=== PATIENT | male | born 1965 | race African-American/Black ===

== ENCOUNTER 2021-02-05 10:19 | Outpatient (REF) | payer OTHER, SELFPAY ==
[2021-02-05 12:14] LABS: Anion Gap 15 (12-20); Blood Urea Nitrogen 9 mg/dL (9-16); Calcium 10.1 mg/dL (8.4-10.2); Carbon Dioxide 22 mmol/L (22-29); Chloride 103 mmol/L (96-108); Estimated Glomerular Filt Rate > 60; Glucose Fasting 190 mg/dL (60-99); Potassium 3.9 mmol/L (3.3-5.1); Rheumatoid Factor < 15.0 IU/mL (<15.0); Sodium 136 mmol/L (135-145)
[2021-02-05 12:32] LABS: Erythrocyte Sedimentation Rate 16 MM/HR (0-15)
[2021-02-05 12:45] LABS: Syphilis Screen Nonreactive (Nonreactive)
[2021-02-05 13:01] LABS: Folate 10.1 ng/mL (> or = 4.0); Vitamin B12 585 pg/mL (200-900)
[2021-02-06 12:20] LABS: Complement C3 120 mg/dL (82-185)
[2021-02-07 05:06] LABS: Lyme Abs Screen <0.90 index
[2021-02-07 10:16] LABS: Anti DNA DS Antibody <1 IU/mL
[2021-02-08 13:46] LABS: IgA 301 mg/dL (47-310); IgG 1341 mg/dL (600-1640); IgM 71 mg/dL (50-300)
[2021-02-10 16:12] LABS: Anti Nuclear Antibody Screen NEGATIVE (NEGATIVE)
[2021-02-11 23:42] LABS: Alpha-Tocopherol 17.2 mg/L (5.7-19.9); Beta-Gamma Tocopherol 1.5 mg/L (<=4.3)
== END 2021-02-05 10:20 | disposition home or self-care (01) ==
LOC: HO.LAB 10:19
PROVIDERS: PCP Internal Medicine Pulmonary Disease; Visit Provider Psychiatry & Neurology Neurology
DX: G62.9 Polyneuropathy, unspecified (principal)
CPT/HCPCS: 36415; 80048; 82550; 82607; 82746; 82784; 84446; 85652; 86038; 86039; 86160; 86225; 86334; 86431; 86617; 86618; 86780

== ENCOUNTER 2021-02-18 11:46 | Outpatient (REF) | payer OTHER, SELFPAY ==
[2021-02-21 04:42] LABS: Arsenic, 24H Urine 34 mcg/L (<=80); Cadmium, 24H Urine <0.5 mcg/L (<=5.0); Lead, 24H Urine <10 mcg/L (<80); Mercury, 24H Urine <4 mcg/L (<=20)
== END 2021-02-18 11:47 | disposition home or self-care (01) ==
LOC: HO.LNP 11:46
PROVIDERS: Visit Provider Psychiatry & Neurology Neurology
DX: G62.9 Polyneuropathy, unspecified (principal)
CPT/HCPCS: 82175; 82300; 83655; 83825